=== PATIENT | female | born 1955 | race Caucasian/White ===

== ENCOUNTER 2019-02-05 12:22 | Emergency (ER) | payer BC ==
[2019-02-05 12:37] VITALS: BMI 28.8
[2019-02-05] MEDS ORDERED: SODIUM CHLORIDE 1,000 ML IV STA (13:01)
--- NOTE | 2019-02-05 13:14 | PDOC ---
History of Present Illness - General Chief Complaint: Pain, Acute Stated Complaint: STABING PAIN ON HER RIGHT SIDE Time Seen by Provider: 02/05/19 12:44 History Source: Patient Exam Limitations: No Limitations - History of Present Illness Initial Comments: 02/05/19 13:09 63 y.o female with no PMH presents to the ED with acute onset sharp.stabbing right sided flank pain. patient states that she was at the movies and aroud 12: 15 she started to have a sudden, shaper stabbing right sided flank pain. She has never had this pain before- she went to urinate and had no probelms urianting (denies any frequency, urgency or dysuria) she continued to have the pain with some associated nausea however once she arrived at the hospital she no loner had any pain. she denies any chest pains, shortness of breath no nausea or vomiting. denies any sick contacts or any recent travel. Timing/Duration: 1/2 hour Severity: mild Associated Symptoms: reports: nausea/vomiting. denies: chest pain, cough Past History - Travel Traveled outside of the country in the last 30 days: No Close contact w/someone who was outside of country & ill: No - Past Medical History Allergies/Adverse Reactions: Allergies Allergy/AdvReac Type Severity Reaction Status Date / Time No Known Allergies Allergy Verified 02/05/19 12:33 Home Medications: Ambulatory Orders NK [No Known Home Medication] 02/05/19 - Surgical History Other Surgical History: 02/05/19 13:12 - Suicide/Smoking/Psychosocial Hx Smoking History: Never smoked Review of Systems - Review of Systems Able to Perform ROS?: Yes Is the patient limited Macedonian proficient: No Constitutional: Yes: Diaphoresis HEENTM: No: Blurred Vision Respiratory: No: Cough, Shortness of Breath Cardiac (ROS): No: Chest Pain : Yes: Flank Pain (right sided ). No: Burning, Dysuria Neurological: No: Headache *Physical Exam - Vital Signs Last Vital Signs Temp Pulse Resp BP Pulse Ox 97.7 F 105 H 20 139/88 97 02/05/19 12:36 02/05/19 12:36 02/05/19 12:36 02/05/19 12:36 02/05/19 12:36 - Physical Exam General Appearance: Yes: Nourished Neck: positive: Normal Thyroid Respiratory/Chest: positive: Lungs Clear, Normal Breath Sounds Cardiovascular: positive: Regular Rhythm, Regular Rate, S1, S2 Gastrointestinal/Abdominal: positive: Normal Bowel Sounds, Flat, Soft Musculoskeletal: negative: CVA Tenderness Extremity: positive: Normal Inspection Integumentary: positive: Normal Color Neurologic: positive: Alert, Responsive ED Treatment Course - LABORATORY CBC & Chemistry Diagram: 02/05/19 13:00 02/05/19 13:00 Medical Decision Making - Medical Decision Making 02/05/19 13:14 cbc/cmp UA renal US reassess renal US showed no evidence of hydro or stones; incidentally found very small gallstones no evidence of any pericholecystic fluid or wall thickening with normals LFTS stable to be dc with uro follow up 02/05/19 15:18 *DC/Admit/Observation/Transfer Diagnosis at time of Disposition: Flank pain - Discharge Dispostion Disposition: HOME Condition at time of disposition: Stable - Referrals Referrals: Thuan Rutherford MD [Staff Physician] - Ayush Chino MD [Staff Physician] - - Patient Instructions Printed Discharge Instructions: DI for Flank Pain Additional Instructions: we are referring you to a urologist to please follow up with in a week we are also referring you to a primary care physician to follow up with in a week if you begin to have worsening or concerning symptoms please return to the emergency room immediately - Post Discharge Activity - Attestations Physician Attestion: 02/05/19 15:21 Sandra Burleson
[2019-02-05 14:28] LABS: BASO % 0.6 % (0-2.0); EOS % 4.1 % (0-4.5); HEMOGLOBIN 14.4 GM/dL (10.7-15.3); LYMPH % 35.2 % (8-40); MCH 29.5 pg (25.7-33.7); MCHC 32.7 g/dl (32.0-36.0); MEAN CELL VOLUME 90.1 fl (80-96); MEAN PLT VOLUME 10.6 fl (7.5-11.1); MONO % 8.5 % (3.8-10.2); NEUT % 51.6 % (42.8-82.8); PLATELET COUNT 204 K/MM3 (134-434); RBC 4.88 M/mm3 (3.60-5.2); RDW 13.6 % (11.6-15.6); WHITE BLOOD COUNT 5.5 K/mm3 (4.0-10.0)
[2019-02-05] MEDS ORDERED: predniSONE 20 MG TABLET (UD) PO ONE (14:30)
[2019-02-05] MEDS ORDERED: guaiFENesin 200 MG/10 ML 10 ML UNIT-DOSE CUPS PO ONE (14:30)
[2019-02-05] MEDS ORDERED: ALBUTEROL SO4 2.5/IPRATROPIUM 0.5 INH SOL 3 ML VIAL.NEB. NEB ONE (14:30)
[2019-02-05 14:31] LABS: PH,URINE 5.5 (5.0-8.0); URINE APPEARANCE CLEAR; URINE BILIRUBIN NEGATIVE (NEGATIVE); URINE COLOR YELLOW; URINE GLUCOSE (UA) NEGATIVE (NEGATIVE); URINE KETONE NEGATIVE (NEGATIVE); URINE LEUK ESTERASE NEGATIVE (NEGATIVE); URINE NITRITE NEGATIVE (NEGATIVE); URINE PROTEIN NEGATIVE (NEGATIVE)
[2019-02-05 14:45] LABS: ALK PHOS 137 U/L (45-117); ANION GAP 6 MMOL/L (8-16); BILIRUBIN,TOTAL 0.2 mg/dL (0.2-1); BLOOD UREA NITROGEN 16 mg/dL (7-18); CALCIUM 9.7 mg/dL (8.5-10.1); CHLORIDE 106 mmol/L (98-107); CO2 25 mmol/L (21-32); CREATININE 0.6 mg/dL (0.55-1.3); GLUCOSE,RANDOM 98 mg/dL (74-106); POTASSIUM 4.3 mmol/L (3.5-5.1); SGOT/AST 20 U/L (15-37); SGPT/ALT 31 U/L (13-61); SODIUM 137 mmol/L (136-145); TOT PROT 8.3 g/dl (6.4-8.2)
[2019-02-05 15:35] VITALS: BP 128/85; PULSE 89; TEMP 98.1
--- NOTE | 2019-02-05 18:26 | PDOC ---
Documentation entered by Carolina Estrella SCRIBE, acting as scribe for Naseem Cardona MD. Naseem Cardona MD: This documentation has been prepared by the Delores clark Nirvannie, SCRIBE, under my direction and personally reviewed by me in its entirety. I confirm that the documentation accurately reflects all work, treatment, procedures, and medical decision making performed by me. Attending Attestation - Resident Resident Name: Sandra Burleson - ED Attending Attestation I have performed the following: I have examined & evaluated the patient, The case was reviewed & discussed with the resident, I agree w/resident's findings & plan, Exceptions are as noted - HPI HPI: 02/05/19 13:56 The patient is a 63 year old female, with no significant past medical history, who presents to the emergency department with, sudden onset sharp, stabbing right flank pain with associated nausea. Patient notes her symptoms onset while at the movies at which time she attempted to urinate and place her feet up, without relief. She denies similar episodes in the past, prompting her arrival to the ED. She denies recent fevers, chills, headache or dizziness. She denies recent vomit, diarrhea or constipation. She denies recent dysuria, frequency, urgency or hematuria. She denies recent chest pain or shortness of breath. Allergies: NKDA - Physicial Exam PE: 02/05/19 13:56 GENERAL: Awake, alert, and fully oriented, in no acute distress HEAD: No signs of trauma NECK: Normal ROM, supple, no lymphadenopathy, JVD, or masses LUNGS: Breath sounds equal, clear to auscultation bilaterally. No wheezes, and no crackles HEART: Regular rate and rhythm, normal S1 and S2, no murmurs, rubs or gallops ABDOMEN: Soft, nontender. No guarding, no rebound. EXTREMITIES: Normal range of motion, no edema. No clubbing or cyanosis. No cords, erythema, or tenderness NEUROLOGICAL: Cranial nerves II through XII grossly intact. Normal speech. SKIN: Warm, Dry, normal turgor, no rashes or lesions noted. - Medical Decision Making 02/05/19 14:01 A portion of this note was documented by [employer] under my direction. I have reviewed the details of the note, within reason, and agree with the documentation with the following case summary and management plan written by me. Patient treated in the ED. Nursing notes are reviewed and incorporated into the medical decision-making. Vital signs reviewed. Peripheral IV access obtained by the nurse, laboratory studies are drawn and sent, reviewed and interpreted by myself. Vital Signs Temp Pulse Resp BP Pulse Ox 97.7 F 105 H 20 139/88 97 02/05/19 12:36 02/05/19 12:36 02/05/19 12:36 02/05/19 12:36 02/05/19 12:36 63-year-old female with no past medical history presents with right flank pain today. Patient woke up in her usual state health and feeling well. While watching movie, the patient felt a sudden onset of colicky pain in the right flank. The pain persisted but resolved on its own. Denies any nausea or vomiting. Denies dysuria or urinary frequency. Denies hematuria. Denies prior history of kidney stones. Patient's no complaints at this time. I suspect patient likely had a kidney stone the past. However, we'll obtain a kidney ultrasound, labs, urinalysis and reassess. Work was negative, the patient be discharged with outpatient follow-up with urology. 02/05/19 15:17 CBC, BMP 02/05/19 13:00 02/05/19 13:00 CMP Sodium 137 mmol/L (136-145) 02/05/19 13:00 Potassium 4.3 mmol/L (3.5-5.1) 02/05/19 13:00 Chloride 106 mmol/L (98-107) 02/05/19 13:00 Carbon Dioxide 25 mmol/L (21-32) 02/05/19 13:00 Anion Gap 6 MMOL/L (8-16) L 02/05/19 13:00 BUN 16 mg/dL (7-18) 02/05/19 13:00 Creatinine 0.6 mg/dL (0.55-1.3) 02/05/19 13:00 Creat Clearance w eGFR 100.65 (>60) 02/05/19 13:00 Random Glucose 98 mg/dL (74-106) 02/05/19 13:00 Calcium 9.7 mg/dL (8.5-10.1) 02/05/19 13:00 Total Bilirubin 0.2 mg/dL (0.2-1) 02/05/19 13:00 AST 20 U/L (15-37) 02/05/19 13:00 ALT 31 U/L (13-61) 02/05/19 13:00 Alkaline Phosphatase 137 U/L (45-117) H 02/05/19 13:00 Total Protein 8.3 g/dl (6.4-8.2) H 02/05/19 13:00 Albumin 4.0 g/dl (3.4-5.0) 02/05/19 13:00 Urine Test Results Urine Color Yellow 02/05/19 13:00 Urine Appearance Clear 02/05/19 13:00 Urine pH 5.5 (5.0-8.0) 02/05/19 13:00 Ur Specific [place] 1.023 (1.010-1.035) 02/05/19 13:00 Urine Protein Negative (NEGATIVE) 02/05/19 13:00 Urine Glucose (UA) Negative (NEGATIVE) 02/05/19 13:00 Urine Ketones Negative (NEGATIVE) 02/05/19 13:00 Urine Blood Negative (NEGATIVE) 02/05/19 13:00 Urine Nitrite Negative (NEGATIVE) 02/05/19 13:00 Urine Bilirubin Negative (NEGATIVE) 02/05/19 13:00 Ur Leukocyte Esterase Negative (NEGATIVE) 02/05/19 13:00 Ultrasound shows unremarkable kidneys, however, incidental gallstones. Will inform her of the incidental findings. Give her urology followup. Pt has no symptoms.
== END 2019-02-05 15:35 | disposition home or self-care (01) ==
LOC: JER 12:22
PROC: 3E0337Z Introduction of Electrolytic and Water Balance Substance into Peripheral Vein, Percutaneous Approach (ICD-10-PCS; principal; 2019-02-05)
DX: R10.31 Right lower quadrant pain (principal); K80.20 Calculus of gallbladder without cholecystitis without obstruction
CPT/HCPCS: 36415; 76775-TC; 80053; 81003; 85025; 87086; 99282-25; J7030

== ENCOUNTER 2019-04-02 20:15 | Emergency (ER) | payer BC ==
[2019-04-02 20:20] VITALS: BP 154/91; PULSE 126; TEMP 98.4; BMI 26.5
--- NOTE | 2019-04-02 20:25 | PDOC ---
History of Present Illness - General Chief Complaint: Choking Sensation Stated Complaint: CHOCKING SENSATION Time Seen by Provider: 04/02/19 20:25 History Source: Patient Exam Limitations: No Limitations - History of Present Illness Initial Comments: 04/02/19 20:35 63 year old female with no PMH presented to ED for FB sensation to throat. Pt reported she was eating steak, and then began to choke on it, had a family member perform the heimlich maneuver, which did not expell the steak. Pt denied nausea/vomiting, shortness of breath. Allergies: NKDA Past History - Past Medical History Allergies/Adverse Reactions: Allergies Allergy/AdvReac Type Severity Reaction Status Date / Time No Known Allergies Allergy Verified 02/05/19 12:33 Home Medications: Ambulatory Orders NK [No Known Home Medication] 02/05/19 - Suicide/Smoking/Psychosocial Hx Smoking History: Unknown if ever smoked Review of Systems - Review of Systems Able to Perform ROS?: Yes Comments:: 04/02/19 20:34 General: denied fever, chills, generalized weakness. HEENT: denied sore throat, rhinorrhea, ear pain. Neck: admitted to FB sensation. Heart: denied chest pain, palpitations, syncope, diaphoresis. Respiratory: denied shortness of breath, cough, sputum production, hemoptysis. Abdomen: denied abdominal pain, nausea, vomiting, diarrhea, constipation, blood in stool. : denied dysuria, increased urinary frequency, hematuria, urinary incontinence , flank pain. Back: denied back pain. Musculoskeletal: denied joint pain, muscle pain, joint swelling. Neurological: denied headache, dizziness, numbness, tingling, weakness. Skin: denied rash, laceration, abrasion. *Physical Exam - Vital Signs Last Vital Signs Temp Pulse Resp BP Pulse Ox 98.4 F 126 H 20 154/91 100 04/02/19 20:17 04/02/19 20:17 04/02/19 20:17 04/02/19 20:17 04/02/19 20:17 - Physical Exam Comments: 04/02/19 20:34 Constitutional: Well-nourished, Well-developed, appearing stated age. HEENT: head is normocephalic, atraumatic. EOMI. PERRLA. no posterior pharygeal erythema. dentures. no tonsillar swelling bilaterally. no tonsillar exudates bilaterally. no FB visualized. Neck: supple. Full ROM. Heart: regular rhythm. no murmurs, rubs or gallops. Lungs: RLL crackles. no wheezing. no stridor. left lung clear to auscultation. speaking full sentences. Abdomen: soft, nontender. normal bowel sounds. no rebound, guarding, masses. Extremities: peripheral pulses intact. no lower extremity edema. Neurological: CN 2-12 grossly intact. moves all four extremities. Psych: awake, alert, oriented x3. follows commands. answers questions appropriately. Medical Decision Making - Medical Decision Making 04/02/19 20:36 63 year old female with above PMH presented to ED for FB sensation after eating steak. Initial Vital Signs Temp Pulse Resp BP Pulse Ox 98.4 F 126 H 20 154/91 100 04/02/19 20:17 04/02/19 20:17 04/02/19 20:17 04/02/19 20:17 04/02/19 20:17 Afebrile. Tachycardic. No tachypnea. Mild hypertension. No hypoxia on room air. Labs ordered: none Imaging ordered: Soft Tissue Neck XR, CXR Medications ordered: glucagon 1mg IM once 04/02/19 20:57 Neck and Soft Tissue XR report: Findings: No prevertebral soft tissue swelling. The epiglottis is within normal limits. The visualized airway is grossly unremarkable. There is no radiographic evidence of radiopaque foreign body. There is some mild degenerative disc disease at the C5-C6 and probably at the C6 -C7 level. Impression: No radiographic evidence of radiopaque foreign body. CXR report: Findings: PA and lateral views of the chest were provided. There is some minimal bibasilar areas of atelectasis. The remainder of the pulmonary parenchyma and pleural surfaces are unremarkable. The visualized cardiomediastinal structures and bony structures are unremarkable. Impression: No definite acute cardiopulmonary abnormality. Questionable FB seen on my and Dr. Pepe's view of XR right at the location patient localizes discomfort to. GI paged. 04/02/19 21:08 I spoke with NICK Vadlerrama director instructional material, who will come to evaluate the patient. He requested basic labs, T/S, EKG. Above ordered. 04/02/19 21:14 Pt reported resolution of symptoms. Pt tolerated PO cracker and water challenge. GI paged. 04/02/19 21:[address] Rudd, who recommended outpatient follow up with him and soft food diet for 3 days. Pt informed and given referral. Pt discharged. *DC/Admit/Observation/Transfer Diagnosis at time of Disposition: Sensation of foreign body - Discharge Dispostion Disposition: HOME Condition at time of disposition: Improved Decision to Admit order: No - Referrals Referrals: Shahid Woods DO [Staff Physician] - - Patient Instructions Additional Instructions: Follow up with a primary care doctor within 3 days. Your care is not complete until you follow up. I have provided you with a pamphlet with information on our clinic. Follow up with a drier transfer car operator within 3 days. Your care is not complete until you follow up. I have provided you with a referral for the drier transfer car operator we called in the Emergency Department. Call his office and secure the first appointment available. Eat soft foods for the next three days. Return to the Emergency Department for fever, chest pain, shortness of breath, choking sensation, vomiting or any other new, worsening or concerning symptoms. - Post Discharge Activity Forms/Work/School Notes: Back to Work
[2019-04-02] MEDS ORDERED: GLUCAGON 1 MG KIT IM ONE (20:30)
[2019-04-02] MEDS ORDERED: GlUCAGON HUMAN RECOMBINANT 1 MG/VIAL ONE (20:36)
--- NOTE | 2019-04-02 20:59 | PDOC ---
Documentation entered by Ca Whiteside SCRIBE, acting as scribe for Nga Pepe MD. gNa Pepe MD: This documentation has been prepared by the scribe, Ca Whiteside SCRIBE, under my direction and personally reviewed by me in its entirety. I confirm that the documentation accurately reflects all work, treatment, procedures, and medical decision making performed by me. Attending Attestation - Resident Resident Name: GregorioElsa - ED Attending Attestation I have performed the following: I have examined & evaluated the patient, The case was reviewed & discussed with the resident, I agree w/resident's findings & plan, Exceptions are as noted - HPI HPI: 04/02/19 20:51 The patient is a 63 year old female with no significant past medical history who presents to the emergency department with a choking sensation prior to arrival. The patient reports that she was out at dinner eating steak when she began to choke on a piece. The patient states that she subsequently was given the heimlich maneuver to remove to pick of mat from her throat. The patient states that she still feels a if something is stuck in her throat and making her feel as if she is still choking. The patient reports to the ED for further evaluation. She denies any other symptoms or complaints. - Physicial Exam PE: GENERAL: Awake, alert, and fully oriented, in no acute distress. Intermittently spitting into emesis bag HEAD: No signs of trauma EYES: PERRLA, EOMI, sclera anicteric, conjunctiva clear ENT: Auricles normal inspection, hearing grossly normal, nares patent, oropharynx clear without exudates. Moist mucosa NECK: Normal ROM, supple, no lymphadenopathy, JVD, or masses LUNGS: Breath sounds equal, clear to auscultation bilaterally. No wheezes, and no crackles HEART: Regular rate and rhythm, normal S1 and S2, no murmurs, rubs or gallops ABDOMEN: Soft, nontender, normoactive bowel sounds. No guarding, no rebound. No masses EXTREMITIES: Normal range of motion, no edema. No clubbing or cyanosis. No cords, erythema, or tenderness NEUROLOGICAL: Cranial nerves II through XII grossly intact. Normal speech, normal gait. Motor and sensation intact SKIN: Warm, Dry, normal turgor, no rashes or lesions noted. - Medical Decision Making 04/02/19 20:58 Pt having difficulty tolerating secretions, XR suspicious for FB in the exact place she indicates (at the base of her throat). Glucagon was given, still having similar symptoms. Will d/w GI. 04/02/19 21:14 Shortly after GI was called, patient suddenly felt the bolus descend. Now able to tolerate secretions, solids and liquids. Will DC GI consult.
== END 2019-04-02 21:31 | disposition home or self-care (01) ==
LOC: JER 20:15
PROC: 3E023GC Introduction of Other Therapeutic Substance into Muscle, Percutaneous Approach (ICD-10-PCS; principal; 2019-04-02)
DX: R09.89 Other specified symptoms and signs involving the circulatory and respiratory systems (principal)
CPT/HCPCS: 70360-TC-FY; 71046-TC-FY; 99281-25

== ENCOUNTER 2021-01-22 11:14 | Emergency (ER) | payer BC ==
[2021-01-22 11:30] VITALS: TEMP 98.2; BMI 30.2
[2021-01-22] MEDS ORDERED: ACETAMINOPHEN 1000 MG/100 ML VIAL (NON FORMULARY) IVPB ONE (12:30)
[2021-01-22] MEDS ORDERED: ACETAMINOPHEN INJECTION 100 ML IVPB ONE (12:56)
[2021-01-22 12:57] LABS: BASO % 0.6 % (0-2.0); HEMATOCRIT 42.2 % (32.4-45.2); HEMOGLOBIN 14.4 GM/dL (10.7-15.3); LYMPH % 29.2 % (8-40); MCH 30.5 pg (25.7-33.7); MCHC 34.1 g/dl (32.0-36.0); MEAN CELL VOLUME 89.4 fl (80-96); MEAN PLT VOLUME 10.2 fl (7.5-11.1); MONO % 7.4 % (3.8-10.2); NEUT % 59.8 % (42.8-82.8); PLATELET COUNT 205 K/MM3 (134-434); RBC 4.72 M/mm3 (3.60-5.2); RDW 13.7 % (11.6-15.6); WHITE BLOOD COUNT 4.4 K/mm3 (4.0-10.0)
[2021-01-22 13:06] LABS: INR 1.01 (0.83-1.09); PROTHROMBIN TIME (PATIENT) 12.4 SEC (9.7-13.0)
[2021-01-22 13:29] LABS: CHLORIDE 103 mmol/L (98-107); SODIUM 137 mmol/L (136-145)
[2021-01-22 13:32] LABS: ALBUMIN 4.2 g/dl (3.4-5.0); ANION GAP 8 MMOL/L (8-16); BLOOD UREA NITROGEN 12.7 mg/dL (7-18); CO2 26 mmol/L (21-32); GLUCOSE,RANDOM 108 mg/dL (74-106)
[2021-01-22 13:35] LABS: CREATININE 0.6 mg/dL (0.55-1.3); SGOT/AST 18 U/L (15-37); SGPT/ALT 26 U/L (13-61)
[2021-01-22 13:36] LABS: BILIRUBIN,TOTAL 0.3 mg/dL (0.2-1); TOT PROT 8.4 g/dl (6.4-8.2)
[2021-01-22 13:37] LABS: ALK PHOS 126 U/L (45-117)
[2021-01-22] MEDS ORDERED: SODIUM CHLORIDE 0.9% 1000 ML INFUS.BAG IV ONE (14:34)
[2021-01-22] MEDS ORDERED: KETOROLAC TROMETHAMINE 30 MG/1 ML VIAL IVPUSH ONE (16:04)
[2021-01-22] MEDS ORDERED: KETOROLAC TROMETHAMINE 30 MG/1 ML VIAL ONE (16:09)
[2021-01-22 19:52] VITALS: BP 140/82; PULSE 98
== END 2021-01-22 19:46 | disposition home or self-care (01) ==
LOC: JER 11:14
PROC: 3E033NZ Introduction of Analgesics, Hypnotics, Sedatives into Peripheral Vein, Percutaneous Approach (ICD-10-PCS; principal; 2021-01-22)
PROC: 3E0333Z Introduction of Anti-inflammatory into Peripheral Vein, Percutaneous Approach (ICD-10-PCS; 2021-01-22)
DX: R07.9 Chest pain, unspecified (principal); R00.0 Tachycardia, unspecified
CPT/HCPCS: 36415; 71046-TC-FY; 80053; 82550; 84439; 84443; 84481; 84484; 85025; 85379; 85610; 93005; 93010; 93308; 99285-25; C9803; J0131; U0003; U0005

== ENCOUNTER 2021-01-23 22:49 | Emergency (ER) | payer BC ==
[2021-01-23 22:55] VITALS: BP 122/90; PULSE 132; TEMP 98.1; BMI 31.8
[2021-01-23] MEDS ORDERED: valACYclovir HCL 1000 MG TABLET PO ONE (23:49)
[2021-01-23] MEDS ORDERED: ACETAMINOPHEN 325 MG TABLET (FP) PO ONE (23:49)
[2021-01-23] MEDS ORDERED: ACETAMINOPHEN 325 MG TABLET (FP) ONE (23:57)
[2021-01-23] MEDS ORDERED: ACYCLOVIR 200 MG CAPSULE ONE (23:58)
== END 2021-01-24 00:15 | disposition home or self-care (01) ==
LOC: JER 22:49
DX: B02.9 Zoster without complications (principal)
CPT/HCPCS: 93005; 93010; 99285-25

== ENCOUNTER 2023-08-14 08:47 | Emergency (ER) | payer OTHER, BC ==
[2023-08-14 08:54] VITALS: BMI 29.2
[2023-08-14 10:38] LABS: BASO % 0.4 % (0-2.0); EOS % 1.8 % (0-4.5); HEMATOCRIT 43.5 % (32.4-45.2); HEMOGLOBIN 14.3 GM/dL (10.7-15.3); LYMPH % 19.9 % (8-40); MCH 29.7 pg (25.7-33.7); MCHC 32.9 g/dl (32.0-36.0); MEAN CELL VOLUME 90.2 fl (80-96); MEAN PLT VOLUME 10.9 fl (7.5-11.1); MONO % 7.7 % (3.8-10.2); NEUT % 70.2 % (42.8-82.8); PLATELET COUNT 208 10^3/uL (134-434); RBC 4.82 M/mm3 (3.60-5.2); RDW 13.3 % (11.6-15.6); WHITE BLOOD COUNT 8.1 K/mm3 (4.0-10.0)
[2023-08-14 10:40] LABS: INR 1.06 (0.83-1.09); PROTHROMBIN TIME (PATIENT) 12.3 SEC (9.7-13.0)
[2023-08-14 10:43] LABS: ACTIVATED PTT 31.7 SECONDS (25.2-36.5)
[2023-08-14 10:59] LABS: POTASSIUM 4.1 mmol/L (3.5-5.1)
[2023-08-14 11:14] LABS: ALBUMIN 4.2 g/dl (3.4-5.0); BLOOD UREA NITROGEN 17.8 mg/dL (7-18); CALCIUM 9.4 mg/dL (8.5-10.1)
[2023-08-14 11:17] LABS: CREATININE 0.7 mg/dL (0.55-1.3)
[2023-08-14 11:18] LABS: TOT PROT 8.5 g/dl (6.4-8.2)
[2023-08-14 11:19] LABS: BILIRUBIN,TOTAL 0.5 mg/dL (0.2-1)
[2023-08-14] MEDS ORDERED: FENTANYL CITRATE/PF 50 MCG/ML VIAL ONE (13:48)
[2023-08-14 17:32] VITALS: RESP 18; TEMP 97.7
[2023-08-14 17:35] VITALS: BP 143/91; PULSE 96
[2023-08-15] MEDS ORDERED: ENOXAPARIN NA (PORCINE) 40 MG/0.4 ML DISP.SYRIN SQ SCH (10:00)
== END 2023-08-14 17:45 | disposition home or self-care (01) ==
LOC: JER 08:47 → JERBED 10:52 → UNDOADMOB 10:52
PROC: 3E033GC Introduction of Other Therapeutic Substance into Peripheral Vein, Percutaneous Approach (ICD-10-PCS; principal; 2023-08-14 14:00)
DX: R09.89 Other specified symptoms and signs involving the circulatory and respiratory systems (principal); R00.0 Tachycardia, unspecified
CPT/HCPCS: 36415; 71045-TC-FY; 80053; 84439; 84443; 84481; 85025; 85610; 85730; 88305-TC; 88342-TC; 93005; 93010; 94760; 96374; 99285-25